=== PATIENT | female | born 1935 | race Caucasian/White ===

== ENCOUNTER → 2017-07-04 | Outpatient (CLI) | payer MEDICARE ==
[~2017-07-04] MED LIST: ADVA250A INH; ADVAI250I INH; ALBU8I INH; ALBUAER3 INH; ALPR-138 PO; ALPR0.25 PO; AMIT10TA6 PO; ASCO1CAP PO; BIOT1CAP2 PO; C 50TAB PO; CALC1TAB87 PO; CALCTAB94 PO; CARV3.12 PO; DUONI NEB; HYDR-2768 PO; HYDR12.56 PO; IPRASOL INH; LISI-515 PO; LORA10 PO; MONT10TA4 PO; MULT1TAB PO; PRED10 PO; PRIN20TA2 PO; PROBCAP4 PO; PROT40TA PO; SPIRCAP INH; UMEC1INH INH; VITA2000 PO; VITA200017 PO
[2017-07-04 12:52] LABS: AUTOMATED NEUTROPHIL # 5.7 TH/MM3 (1.8-7.7); BASOPHIL % 0.5 % (0.0-2.0); EOSINOPHIL # 0.1 TH/MM3 (0-0.4); EOSINOPHIL % 0.9 % (0.0-4.0); HEMATOCRIT 39.3 % (35.0-46.0); HEMOGLOBIN 13.4 GM/DL (11.6-15.3); LYMPH % 29.5 % (9.0-44.0); LYMPHOCYTE # 2.6 TH/MM3 (1.0-4.8); MEAN CELL VOLUME 90.8 FL (80.0-100.0); MEAN CORPUSCULAR HEMOGLOBIN 30.9 PG (27.0-34.0); MEAN CORPUSCULAR HGB CONC 34.1 % (32.0-36.0); MEAN PLATELET VOLUME 8.5 FL (7.0-11.0); MONO % 5.9 % (0.0-8.0); MONOCYTE # 0.5 TH/MM3 (0-0.9); NEUT % 63.2 % (16.0-70.0); PLATELET COUNT 288 TH/MM3 (150-450); RED BLOOD COUNT 4.33 MIL/MM3 (4.00-5.30); RED CELL DISTRIBUTION WIDTH 15.6 % (11.6-17.2)
[2017-07-04 13:02] LABS: BILIRUBIN, URINE NEG (NEG); BLOOD, URINE TRACE (NEG); GLUCOSE,URINE NEG (NEG); KETONE, URINE NEG (NEG); MUCUS URINE FEW /lpf (OCC); NITRITE,URINE NEG (NEG); SQUAMOUS EPITHELIAL CELL URINE 5 /hpf (0-5); URINE COLOR YELLOW (YELLW/STRAW); URINE LEUKOCYTE ESTERASE TRACE (NEG)
[2017-07-04 13:05] LABS: PROTHROMBIN TIME - PATIENT 10.2 SEC (9.8-11.6)
[2017-07-04 13:18] LABS: ALBUMIN 3.7 GM/DL (3.4-5.0); AST (GOT) 19 U/L (15-37); BICARBONATE 26.3 MEQ/L (21.0-32.0); BLOOD UREA NITROGEN 18 MG/DL (7-18); CALCIUM 9.7 MG/DL (8.5-10.1); CHLORIDE 103 MEQ/L (98-107); CREATININE 0.76 MG/DL (0.50-1.00); GLOMERULAR FILTRATION RATE 73 ML/MIN (>89); GLUCOSE,FASTING 112 MG/DL (74-99); SODIUM (NA) 139 MEQ/L (136-145)
[2017-07-04 13:20] LABS: ALT (GPT) 19 U/L (10-53)
[2017-07-04 13:21] LABS: ALKALINE PHOSPHATASE 80 U/L (45-117); TOTAL BILIRUBIN ADULT 0.6 MG/DL (0.2-1.0); TOTAL PROTEIN 7.7 GM/DL (6.4-8.2)
--- NOTE | 2017-07-04 13:23 | RADRPT ---
EXAM DATE/TIME: 07/04/2017 12:33 [place] COMPARISON: No previous studies available for comparison. INDICATIONS : Pre op. Evaluate for pneumonia, pneumothorax, or communicable diseases. MEDICAL HISTORY : Chronic obstructive pulmonary disease. Hypertension SURGICAL HISTORY : None. ENCOUNTER: Initial ACUITY: 1 day PAIN SCORE: 0/10 LOCATION: Bilateral chest FINDINGS: PA and lateral views of the chest demonstrate the lungs to be symmetrically aerated without evidence of mass, infiltrate or effusion. The cardiomediastinal contours are unremarkable. Osseous structure s are intact. CONCLUSION: Normal examination. Flowing thoracic spine osteophyte anteriorly Miah Plunkett MD on July 04, 2017 at 13:21 Board Certified Radiologist. This report was verified electronically.
--- NOTE | 2017-07-05 11:41 | EKG ---
Date Performed: 07/04/2017 Time Performed: 11:35:42 PTAGE: 82 years EKG: ECTOPIC ATRIAL BRADYCARDIA MARKED LEFT AXIS DEVIATION LOW QRS VOLTAGE IN PRECORDIAL LEADS P OSSIBLE ANTERIOR MYOCARDIAL INFARCTION, PROBABLY OLD ABNORMAL ECG PREVIOUS TRACING : 10/13/2013 11.19 When compared to the prior EKG, the patient is now in an ec topic rhythm. DOCTOR: Helen Reece Interpretating Date/Time 07/05/2017 11:39:40
== END ==
LOC: CPRE 11:10
PROVIDERS: ATTEND Colon & Rectal Surgery
DX: Z01.810 Encounter for preprocedural cardiovascular examination (principal); Z01.811 Encounter for preprocedural respiratory examination; Z01.812 Encounter for preprocedural laboratory examination; K94.09 Other complications of colostomy; R94.31 Abnormal electrocardiogram [ECG] [EKG]
CPT/HCPCS: 36415; 71046; 80053; 81001; 85025; 85610; 85730; 93005

== ENCOUNTER 2017-07-11 08:34 | Inpatient (IN) | payer MEDICARE ==
[2017-07-10] MEDS: PCA - TOTAL MG MORPHINE DELIVERED PER SHIFT SCH (22:00)
[~2017-07-11] VITALS: Ht 156.2 cm; Wt 97.0 kg
[~2017-07-11 08:34] MED LIST changes: -ADVAI250I INH; -ALBU8I INH; -ALPR-138 PO; -C 50TAB PO; -CALCTAB94 PO; -DUONI NEB; -HYDR-2768 PO; -LORA10 PO; -PRED10 PO; -PRIN20TA2 PO; -PROBCAP4 PO; -PROT40TA PO; -SPIRCAP INH; -VITA200017 PO
[2017-07-11] MEDS ORDERED: LACTATED RINGER'S 1000 ML INJ 2,000 ML IV ONE (12:00)
[2017-07-11] MEDS ORDERED: hydrALAZINE HCL 20 MG/ML VIAL IV ONE (12:00)
[2017-07-11] MEDS ORDERED: ONDANSETRON HCL 4 MG/2 ML VIAL IV ONE (12:00)
[2017-07-11] MEDS ORDERED: PROPOFOL 200 MG/20 ML AMP IV ONE (12:00)
[2017-07-11] MEDS ORDERED: STERILE WATER FOR INJECTION 20 ML VIAL IV ONE (12:00)
[2017-07-11] MEDS ORDERED: ROCURONIUM INJ 50 MG/5 ML SYRINGE IV PUSH ONE (12:00)
[2017-07-11] MEDS ORDERED: DEXAMETHASONE SOD PHOS 4 MG/ML VIAL IV ONE (12:00)
[2017-07-11] MEDS ORDERED: VECURONIUM BROMIDE 20 MG VIAL IV ONE (12:00)
[2017-07-11] MEDS ORDERED: DEXT 5%-NACL 0.9% 1000 ML INJ 1,000 ML IV SCH (12:15)
[2017-07-11] MEDS ORDERED: LACTATED RINGER'S 1000 ML IV PRN (12:15)
[2017-07-11] MEDS ORDERED: POVIDONE IODINE 5% (ANTISEPSIS KIT) 4 APPLICATIONS EACH NARE PRN (12:15)
[2017-07-11] MEDS ORDERED: METOPROLOL TARTRATE 25 MG TAB PO PRN (12:15)
[2017-07-11] MEDS ORDERED: INSULIN HUMAN REGULAR 1,000 UNITS/10 ML VIAL SQ PRN (12:15)
[2017-07-11] MEDS ORDERED: ceFAZolin 1,000 MG/NS 100 ML IV SCH ×2 (12:15)
[2017-07-11] MEDS ORDERED: CHLORHEXIDINE GLUCONATE 2 % 1 PACK (2 CLOTHS) TOPICAL PRN (12:15)
[2017-07-11] MEDS ORDERED: SODIUM CHLORID 0.9% 500 ML IV PRN (12:15)
[2017-07-11] MEDS ORDERED: ALVIMOPAN 12 MG CAPSULE ONE (12:35)
[2017-07-11] MEDS: METRONIDAZOLE 500 MG/100 ML ISONTONIC SOLN IV SCH ×2 (13:21→13:23)
[2017-07-11] MEDS ORDERED: SUGAMMADEX SODIUM 200 MG/2 ML VIAL IV PUSH ONE (13:34)
--- NOTE | 2017-07-11 14:33 | PD.OP ---
Operative Report Date of Surgery: Jul 11, 2017 Preoperative Diagnosis: Diverticulitis Postoperative Diagnosis: Same Procedure: Cystoscopy with bilateral ureteral catheter placement Anesthesia: ALEJANDRO Surgeon: Homer Curtis Thermograph Operator(s): None Resident Surgeon: None Operation and Findings: 82-year-old female who underwent colectomy in the past with Andrew's pouch. Patient presented to undergo colostomy reversal. Request for made for bilateral ureteral catheter placement by Dr. Be. Patient is brought to the operating room and placed in dorsal lithotomy position. She was prepped and draped in usual sterile fashion received preprocedure antibiotics. Gen. endotracheal tube anesthesia was administered. 20 Latvian cystoscope was inserted in the bladder jackson cystoscopy did not reveal any abnormalities. Left ureteral orifice was identified and a 5 Latvian opening catheter was inserted in the left ureteral orifice without difficulty. This was then repeated on the right side without difficulty. A Merlos was inserted and the catheter was were attached the Merlos. She tolerated the procedure well. Homer Curtis DO Jul 11, 2017 14:33
[2017-07-11] MEDS ORDERED: GLUCAGON 1 MG/ML VIAL ONE (15:43)
[2017-07-11] MEDS ORDERED: *RESP: ALBUTEROL 2.5 MG/3 ML NEB (PRN) PERIprocedural Use ONLY NEB ONE (17:37)
[2017-07-11] MEDS ORDERED: *morphine SULFATE 4 MG/ML PERIprocedure ONLY ONE ×2 (17:41→17:46)
[2017-07-11] MEDS ORDERED: BENZOCAINE 6 MG/MENTHOL 10 MG LOZENGE BUCCAL PRN (17:45)
[2017-07-11] MEDS ORDERED: Post-op Orders (for Pharmacy) XX ONE (17:45)
[2017-07-11] MEDS ORDERED: SODIUM CHLORIDE 0.9% FLUSH 10 ML FLUSH IV FLUSH PRN (17:45)
[2017-07-11] MEDS ORDERED: ALBUTEROL SULFATE 90 MCG/ACT HFA 8 GM INHALER INH PRN (17:45)
[2017-07-11] MEDS ORDERED: ENALAPRILAT 1.25 MG/ML VIAL IV PUSH PRN (17:45)
[2017-07-11] MEDS ORDERED: POTASSIUM CHLOR 20 MEQ PREMIX 100 ML IV PRN (17:45)
[2017-07-11] MEDS ORDERED: ACETAMINOPHEN/HYDROcodone 325 MG/5 MG TAB PO PRN (17:45)
[2017-07-11] MEDS ORDERED: NALOXONE HCL 0.4 MG/ML AMP IV PUSH PRN (17:45)
[2017-07-11] MEDS ORDERED: ZOLPIDEM TARTRATE 5 MG TAB PO PRN (17:45)
[2017-07-11] MEDS ORDERED: POTASSIUM CHLOR 40 MEQ PREMIX 100 ML IV PRN (17:45)
[2017-07-11] MEDS ORDERED: HYDROmorphone HCL PF 2 MG/ML VIAL ONE (17:53)
[2017-07-11] MEDS: METOCLOPRAMIDE HCL 10 MG/2 ML VIAL IVS SCH ×2 (18:00→23:25)
[2017-07-11] MEDS: D5-LR + KCL 20 MEQ INJ 1,000 ML IV SCH ×2 (18:15→23:25)
[2017-07-11] MEDS: MORPHINE SULFATE 30 MG/30 ML PCA IV SCH (18:15)
[2017-07-11 18:52] LABS: AUTOMATED NEUTROPHIL # 16.5 TH/MM3 (1.8-7.7); BASOPHIL # 0.1 TH/MM3 (0-0.2); BASOPHIL % 0.3 % (0.0-2.0); EOSINOPHIL % 0.1 % (0.0-4.0); HEMATOCRIT 41.6 % (35.0-46.0); LYMPH % 16.8 % (9.0-44.0); LYMPHOCYTE # 3.5 TH/MM3 (1.0-4.8); MEAN CELL VOLUME 91.9 FL (80.0-100.0); MEAN CORPUSCULAR HGB CONC 33.7 % (32.0-36.0); MEAN PLATELET VOLUME 9.2 FL (7.0-11.0); MONO % 3.8 % (0.0-8.0); MONOCYTE # 0.8 TH/MM3 (0-0.9); PLATELET COUNT 284 TH/MM3 (150-450); RED BLOOD COUNT 4.53 MIL/MM3 (4.00-5.30); RED CELL DISTRIBUTION WIDTH 15.1 % (11.6-17.2); WHITE BLOOD COUNT 20.9 TH/MM3 (4.0-11.0)
[2017-07-11 19:02] LABS: BICARBONATE 22.2 MEQ/L (21.0-32.0); CALCIUM 8.7 MG/DL (8.5-10.1); CREATININE 1.09 MG/DL (0.50-1.00)
[2017-07-11] MEDS ORDERED: DO NOT ADM ANY ANTICOAGULANT DRUGS PRN (19:30)
[2017-07-11 19:50] VITALS: BP 178/76; PULSE 71; PULSE 80; RESP 18; TEMP 98.2; O2SAT 94
[2017-07-11] MEDS: FUROSEMIDE 20 MG/2 ML VIAL IV PUSH SCH (21:29)
[2017-07-11] MEDS: ceFAZolin 2 GM PREMIX 50 ML IV SCH (21:30)
[2017-07-11] MEDS: MONTELUKAST SODIUM 10 MG TAB PO SCH (21:30)
[2017-07-11] MEDS: CARVEDILOL 3.125 MG TAB PO SCH (21:30)
[2017-07-11] MEDS: LISINOPRIL 20 MG TAB PO SCH (21:30)
[2017-07-11] MEDS: BUDESONIDE-FORMOTEROL 160/4.5 MCG INHALER INH SCH (21:30)
[2017-07-11] MEDS: metroNIDAZOLE 500 MG INJ 100 ML IV SCH (21:31)
[2017-07-11] MEDS: SODIUM CHLORIDE 0.9% FLUSH 10 ML FLUSH IV FLUSH SCH (21:32)
[2017-07-11] MEDS: PCA - TOTAL MG MORPHINE DELIVERED PER SHIFT SCH (22:00)
[2017-07-11 22:05] VITALS: O2SAT 97
[2017-07-11 23:00] VITALS: BP 144/62; PULSE 74; PULSE 78; RESP 16; TEMP 99.2; O2SAT 95
[2017-07-12] VITALS (8 sets, daily range): BP systolic 102–157; BP diastolic 49–66; PULSE 64–73; RESP 16–20; TEMP 97.7–98.8; O2SAT 94–97
[2017-07-12] MEDS: D5-LR + KCL 20 MEQ INJ 1,000 ML IV SCH ×4 (03:36→21:56)
[2017-07-12] MEDS: ceFAZolin 2 GM PREMIX 50 ML IV SCH ×2 (05:53→13:29)
[2017-07-12] MEDS: METOCLOPRAMIDE HCL 10 MG/2 ML VIAL IVS SCH ×4 (05:53→23:52)
[2017-07-12] MEDS: metroNIDAZOLE 500 MG INJ 100 ML IV SCH ×2 (05:53→13:28)
[2017-07-12 08:20] LABS: AUTOMATED NEUTROPHIL # 23.3 TH/MM3 (1.8-7.7); BASOPHIL % 0.1 % (0.0-2.0); HEMATOCRIT 37.1 % (35.0-46.0); HEMOGLOBIN 12.5 GM/DL (11.6-15.3); LYMPH % 4.8 % (9.0-44.0); LYMPHOCYTE # 1.2 TH/MM3 (1.0-4.8); MEAN CORPUSCULAR HGB CONC 33.7 % (32.0-36.0); MEAN PLATELET VOLUME 8.5 FL (7.0-11.0); MONO % 5.5 % (0.0-8.0); MONOCYTE # 1.4 TH/MM3 (0-0.9); NEUT % 89.6 % (16.0-70.0); PLATELET COUNT 275 TH/MM3 (150-450); RED BLOOD COUNT 4.03 MIL/MM3 (4.00-5.30); WHITE BLOOD COUNT 26.1 TH/MM3 (4.0-11.0)
[2017-07-12] MEDS: RESP: ALBUTEROL 2.5 MG/IPRATROPIUM 0.5 MG NEB (SCH) INH ×3 (08:26→19:40)
--- NOTE | 2017-07-12 08:32 | MP ---
cc: Roderick Patricia MDRolando DATE OF OPERATION: 07/11/2017 PREOPERATIVE DIAGNOSIS: Colostomy, heart pouch. POSTOPERATIVE DIAGNOSIS: Colostomy, heart pouch. PROCEDURES PERFORMED: 1. Left colectomy with low anterior resection. 2. Diverting loop ileostomy. 3. Mobilization of splenic flexure. 4. Bilateral ureteral catheter placement by Dr. Homer Curtis. ANESTHESIA: Endotracheal. SURGEON: Roderick Patricia MD ACCOUNT CLERK: Dr. De La Cruz ESTIMATED BLOOD LOSS: 300 milliliters. OPERATING TIME: Two hours and 45 minutes. OPERATIVE FINDINGS: This patient had an emergency colectomy done in [place], [place] about 6 months for ruptured diverticulitis. At that time, they did a colectomy and a colostomy and a Andrew pouch. She then was in the hospital here in March with a 2-3 cm abdominal abscess on the left side, inferior to her colostomy, which cleared with intravenous antibiotics. She has had a previous colonoscopy done a year ago by Dr. Centeno. The patient is 82 years old and wished closure of her colostomy. Preoperatively, I discussed the risks and benefits with her extensively. At surgery, she was found to have multiple abdominal adhesions, with a small previous abscess in the left lower quadrant with several loops of small bowel stuck against the left pelvic sidewall, where this abscess was located. She had a fairly long Andrew pouch, probably 20 cm in length and we originally were going to use the upper rectum for the anastomosis, however, it appeared dusky and somewhat contracted and we were unable to use an adequate stapler for that level. We, therefore, ended up using the lower rectum at about 5 cm above the pelvic floor with a double staple technique. A full left colectomy was done in order to get adequate quality colon to create the anastomosis. The bowel above the colostomy was somewhat contracted and we used descending colon. An omental flap was placed on the left colic gutter into the pelvis. The remainder of the abdomen revealed that the liver, the gallbladder, the small bowel and the rest of the colon was palpably normal. The uterus was surgically absent, as were the tubes and ovaries. OPERATIVE TECHNIQUE: The patient was placed on the table in the supine position after adequate endotracheal anesthesia. The legs were placed in the perineal lithotomy position. Abdomen and perineum were prepped and draped in usual manner. Mucosa of the colostomy was sutured closed with running 3-0 Vicryl suture and then the abdomen was prepped and draped in the usual manner. Transverse infraumbilical skin incision was made, carried down through the subcutaneous tissue and the rectus muscle. The patient was quite obese, complicating the dissection. Upon entering the abdomen, there was diffuse abdominal adhesions of the bowel wall to the anterior abdominal wall and these were taken down both in the midline at her previous incision site and laterally near the colostomy. Once the omental adhesions and the small bowel adhesions were taken down, attention was turned to the Andrew pouch and the left side of the pelvis. Loops of small bowel were stuck down into the pelvis densely and they were dissected free with electrocautery and sharp dissection and a small 1 cm abscess was found with several loops of small bowel walling it off. These loops of small bowel were inspected numerous times during the case to ensure that there was no enterotomy present. They were fibrotic, but they were not occluding or compromising the lumen of the small bowel in those areas and they were left alone and not resected. The inferior mesenteric vessels were isolated, doubly clamped, cut and doubly ligated with 0 Vicryl ligatures. The left and right ureters were identified and protected at all times at their placement of ureteral catheters by Dr. Homer Curtis. The retrorectal space was entered and the dissection was taken down to the pelvic floor and laterally the lateral stocks were also divided with electrocautery. At first, we tried to stay above the cul-de-sac and use the upper rectum for the anastomosis, but the upper rectum appeared dusky and we were unable to get the 29 Ethicon EEA stapler in the bowel. We, therefore, dissected lower, clearing the mesorectum, in the lower most portion of the mesorectum. The rectum was then divided with a contour stapler at about 5 cm above the pelvic floor. The colostomy was taken down from its cutaneous position with vertical elliptical incision and taken down through the subcutaneous tissue and then was removed through the rectus muscle. The descending colon was mobilized along its perineal reflection and the splenic flexure was likewise mobilized and the omentum was mobilized from the transverse colon entering the lesser sac. Once this was done, the left colic vessels were doubly clamped, cut and doubly ligated with 0 Vicryl ligature and the dissection was taken up to the middle colic and the marginal vessels without compromising these vessels. Once this was done, the pursestring stapling device was placed in the bowel and the bowel was divided in descending colon and the anvil of the Ethicon 29 stapler was placed to the proximal bowel and the pursestring was tied. Dr. De La Cruz went below and placed the EEA instrument transanally. As I said, it was not able to be brought up to the upper rectal region and, therefore, the dissection was taken lower as described above and that rectum was then divided and closed with a contour stapler. When Dr. De La Cruz placed the EEA instrument transanally, the trocar was brought up through the right corner of the staple line and then the instrument was connected, closed and fired, creating the anastomosis. There was no tension on the anastomosis and the blood supply was excellent. The pelvis was irrigated with 3 liters of saline solution, aspirated dry. Hemostasis was maintained throughout with electrocautery and ligature. The abdominal cavity was irrigated likewise with 2 liters of saline solution, aspirated dry. The small bowel was run several times and the area of the fibrotic areas of the small bowel that walled off the small abscess were inspected numerous times and found to be patent, without any enterotomy. An ileostomy was made after creating a stoma site in the right upper quadrant through the rectus muscle and an opening was made in the mesentery of the ileum and the ileum was stapled closed on the distal side with a TX 30 stapler. The ileum was brought out through the stoma site and then a previous colostomy site was closed in 2 layers using a #1 PDS for the posterior rectus sheath and a #1 PDS for the anterior rectus sheath. Next, there was a ventral hernia above our transverse incision in her previous midline incision for about 10 cm and this ventral hernia was repaired inside using a single stranded #1 PDS suture. Next, the bowels were placed in the abdominal cavity in an product ambassador manner. The omentum was placed down the left colic gutter and into the pelvis as an omental flap and a #10 flat Charles drain was placed in the pelvis, posterior to the rectum, brought out through a separate stab wound in the right lower quadrant. We then closed the abdominal cavity in layers using a double stranded #1 PDS for the posterior rectus sheath. The muscle layer was irrigated with a liter of saline solution, aspirated dry and then the anterior rectus sheath was closed with a double strand and 1 PDS as well. Subcutaneous tissue was irrigated thoroughly with saline solution, aspirated dry and the skin was closed with skin kai. The previous colostomy site was closed with skin kai. We then matured the ileostomy using interrupted 3-0 Vicryl sutures. A 57 millimeter appliance was placed. Operating time was 2 hours and 45 minutes. Estimated blood loss was 300 milliliters. The patient tolerated the procedure well and left the operating room in good condition. MD ASHLEIGH Ferreira/VIVEK , 05:36 PM , 07:18 PM
[2017-07-12 08:39] LABS: BICARBONATE 22.6 MEQ/L (21.0-32.0); CALCIUM 8.2 MG/DL (8.5-10.1); CREATININE 1.18 MG/DL (0.50-1.00)
[2017-07-12] MEDS: BUDESONIDE-FORMOTEROL 160/4.5 MCG INHALER INH SCH ×2 (08:58→21:56)
[2017-07-12] MEDS: PANTOPRAZOLE SODIUM 40 MG VIAL IVP SCH (08:59)
[2017-07-12] MEDS: FUROSEMIDE 20 MG/2 ML VIAL IV PUSH SCH ×2 (08:59→21:57)
[2017-07-12] MEDS: HYDROCHLOROTHIAZIDE 12.5 MG CAP PO SCH (09:00)
[2017-07-12] MEDS ORDERED: UMECLIDINIUM BROMIDE 62.5 MCG INH SCH (09:00)
[2017-07-12] MEDS: SODIUM CHLORIDE 0.9% FLUSH 10 ML FLUSH IV FLUSH SCH ×2 (09:01→21:56)
[2017-07-12] MEDS: CARVEDILOL 3.125 MG TAB PO SCH ×2 (09:01→21:57)
[2017-07-12] MEDS: ALVIMOPAN 12 MG CAPSULE PO SCH ×2 (09:01→21:57)
[2017-07-12] MEDS: ONDANSETRON HCL 4 MG/2 ML VIAL IV PUSH PRN (11:05)
[2017-07-12] MEDS: PCA - TOTAL MG MORPHINE DELIVERED PER SHIFT SCH ×2 (14:00→21:58)
--- NOTE | 2017-07-12 14:43 | PD.WCN.NOT ---
Wound Consult Description: Consult for NEW OSTOMY TEACHING of RUQ ileostomy (temporary) per Dr Patricia Communicated with: Patient RN Recommendation: Assess stoma and output Q4H for the first 24 hours then Q8H/PRN for ileostomy. Output will begin usually 12-24 ours postop. Empty pouch of effluent when 1/3-1/2 full Change pouching system every 3-5 days and PRN for suspected leaks Additional Information: Patient seen on for ostomy assessment and teaching. Ostomy Type: Ileostomy Surgeon: Roderick Patricia MD Date of Surgery: Jul 11, 2017 Complete: Education materials Educated patient on: Output of stoma Lumen Measurement of ileostomy Color of stoma Follow up on Saturday for further teaching Additional information Patient seen on for ostomy assessment and teaching. Stoma is located on the right quadrant of the abdomen measuring ~1", round, pink, moist, edematous, moderately protruding, lumen noted @6 o'clock not functioning at this time. Scant serosang liquid noted in pouch and thick sanguinous exudate noted around stoma on wafer. Discussion regarding the differences between a colostomy and an ileostomy. Topics included stoma appearance, foods, medications, showering, supplies, output, wafer wear time, emptying pouch and how often to change the system. Trudy Menard [facility] Jul 12, 2017 14:43
--- NOTE | 2017-07-12 16:32 | HHI.PR ---
Subjective Remarks No N or V. No BMs Objective Vital Signs Date Time Temp Pulse Resp B/P (MAP) Pulse Ox O2 Delivery O2 Flow Rate FiO2 07/12/17 15:18 97.7 71 18 116/56 (76) 96 07/12/17 11:00 97.8 73 18 157/66 (96) 95 07/12/17 08:28 95 Nasal Cannula 2.00 07/12/17 08:00 98.8 73 18 138/58 (84) 95 07/12/17 08:00 95 Nasal Cannula 2.00 07/12/17 03:00 98.1 72 16 150/52 (84) 95 07/12/17 03:00 73 07/11/17 23:00 74 07/11/17 23:00 99.2 78 16 144/62 (89) 95 07/11/17 22:05 97 Nasal Cannula 2.00 07/11/17 22:00 16 07/11/17 22:00 16 07/11/17 20:35 18 07/11/17 19:50 80 07/11/17 19:50 98.2 71 18 178/76 (110) 94 07/11/17 19:00 79 15 169/72 (104) 92 07/11/17 18:45 80 14 178/76 (110) 92 07/11/17 18:30 79 15 174/58 (96) 94 07/11/17 18:15 75 15 182/76 (111) 94 07/11/17 18:15 12 07/11/17 18:00 73 20 176/77 (110) 96 07/11/17 17:45 75 16 176/77 (110) 97 Nasal Cannula 3 07/11/17 17:30 97.5 74 36 181/81 (114) 97 T-Piece 10 I/O 07/11/17 07/11/17 07/11/17 07/12/17 07/12/17 07/12/17 07:00 15:00 23:00 07:00 15:00 23:00 Intake Total 3100 ml 3622 ml Output Total 595 ml 1285 ml Balance 2505 ml 2337 ml Intake Oral 380 ml IV Total 100 ml 3242 ml Other 3000 ml Output Urine Total 250 ml 1200 ml Drainage Total 45 ml 85 ml Estimated Blood Loss 300 ml # Bowel Movements 1 Result Diagram: 07/12/17 0718 0705 Objective Remarks VS-S Abd: soft,stoma pink I&Os-OK Labs-OK Assessment and Plan Assessment and Plan Stable POD#1 Decrease IVs,ambulate,D/C [employer]ICER tomorrow. Roderick Patricia MD Jul 12, 2017 16:32
[2017-07-12] MEDS: LISINOPRIL 20 MG TAB PO SCH (21:57)
[2017-07-12] MEDS: MONTELUKAST SODIUM 10 MG TAB PO SCH (21:57)
[2017-07-13] VITALS (8 sets, daily range): BP systolic 117–143; BP diastolic 56–84; PULSE 72–94; RESP 16–20; TEMP 98–100; O2SAT 94–97
[2017-07-13 04:53] LABS: AUTOMATED NEUTROPHIL # 20.9 TH/MM3 (1.8-7.7); BASOPHIL % 0.1 % (0.0-2.0); EOSINOPHIL % 0.1 % (0.0-4.0); HEMATOCRIT 32.1 % (35.0-46.0); HEMOGLOBIN 10.8 GM/DL (11.6-15.3); LYMPH % 6.4 % (9.0-44.0); LYMPHOCYTE # 1.5 TH/MM3 (1.0-4.8); MEAN CELL VOLUME 91.5 FL (80.0-100.0); MEAN CORPUSCULAR HEMOGLOBIN 30.8 PG (27.0-34.0); MEAN CORPUSCULAR HGB CONC 33.7 % (32.0-36.0); MEAN PLATELET VOLUME 8.5 FL (7.0-11.0); MONO % 4.9 % (0.0-8.0); MONOCYTE # 1.2 TH/MM3 (0-0.9); NEUT % 88.5 % (16.0-70.0); PLATELET COUNT 258 TH/MM3 (150-450); RED BLOOD COUNT 3.51 MIL/MM3 (4.00-5.30); RED CELL DISTRIBUTION WIDTH 14.9 % (11.6-17.2); WHITE BLOOD COUNT 23.6 TH/MM3 (4.0-11.0)
[2017-07-13 05:34] LABS: BICARBONATE 26.9 MEQ/L (21.0-32.0); CALCIUM 8.2 MG/DL (8.5-10.1); CREATININE 1.09 MG/DL (0.50-1.00)
[2017-07-13] MEDS: PCA - TOTAL MG MORPHINE DELIVERED PER SHIFT SCH ×3 (06:00→22:00)
[2017-07-13] MEDS: METOCLOPRAMIDE HCL 10 MG/2 ML VIAL IVS SCH ×4 (06:07→23:38)
[2017-07-13] MEDS: RESP: ALBUTEROL 2.5 MG/IPRATROPIUM 0.5 MG NEB (SCH) INH ×3 (07:28→21:00)
[2017-07-13] MEDS: PANTOPRAZOLE SODIUM 40 MG VIAL IVP SCH (09:00)
[2017-07-13] MEDS: BUDESONIDE-FORMOTEROL 160/4.5 MCG INHALER INH SCH ×2 (09:00→20:54)
[2017-07-13] MEDS: SODIUM CHLORIDE 0.9% FLUSH 10 ML FLUSH IV FLUSH SCH ×2 (09:00→20:53)
[2017-07-13] MEDS: ALVIMOPAN 12 MG CAPSULE PO SCH ×2 (09:26→20:53)
[2017-07-13] MEDS: CARVEDILOL 3.125 MG TAB PO SCH ×2 (09:26→20:53)
[2017-07-13] MEDS: HYDROCHLOROTHIAZIDE 12.5 MG CAP PO SCH (09:26)
[2017-07-13] MEDS: FUROSEMIDE 20 MG/2 ML VIAL IV PUSH SCH ×2 (09:27→20:53)
--- NOTE | 2017-07-13 10:07 | HHI.PR ---
Subjective Remarks C/R Surg POD # 2 afebrile, VSS UO good no stoma output Objective - Vital Signs Date Time Temp Pulse Resp B/P (MAP) Pulse Ox O2 Delivery O2 Flow Rate FiO2 07/13/17 07:58 94 Nasal Cannula 2.00 07/13/17 07:58 98.4 94 20 136/61 (86) Result Diagram: 07/13/1734407/13/17344 Objective Remarks PE alert, VSS destiney little PO Abd - lg, wound dry, stoma clean, FORD min A/P Assessment and Plan Imp: adv diet slowly OOB resp Rx decr IVF Nba Khanna MD Jul 13, 2017 10:07
[2017-07-13] MEDS: ONDANSETRON HCL 4 MG/2 ML VIAL IV PUSH PRN ×2 (10:47→18:10)
[2017-07-13] MEDS: D5-LR + KCL 20 MEQ INJ 1,000 ML IV SCH (20:50)
[2017-07-13] MEDS: LISINOPRIL 20 MG TAB PO SCH (20:53)
[2017-07-13] MEDS: MONTELUKAST SODIUM 10 MG TAB PO SCH (20:53)
[2017-07-13] MEDS: MORPHINE SULFATE 30 MG/30 ML PCA IV SCH (23:34)
[2017-07-14] VITALS (8 sets, daily range): BP systolic 119–139; BP diastolic 53–75; PULSE 60–80; RESP 16–20; TEMP 97.8–98.6; O2SAT 95–98
[2017-07-14] MEDS: PCA - TOTAL MG MORPHINE DELIVERED PER SHIFT SCH (06:00)
[2017-07-14] MEDS: METOCLOPRAMIDE HCL 10 MG/2 ML VIAL IVS SCH (06:28)
[2017-07-14] MEDS: RESP: ALBUTEROL 2.5 MG/IPRATROPIUM 0.5 MG NEB (SCH) INH ×3 (08:39→19:30)
[2017-07-14] MEDS: SODIUM CHLORIDE 0.9% FLUSH 10 ML FLUSH IV FLUSH SCH ×2 (09:00→22:24)
[2017-07-14] MEDS: BUDESONIDE-FORMOTEROL 160/4.5 MCG INHALER INH SCH ×2 (09:00→22:24)
[2017-07-14] MEDS: FUROSEMIDE 20 MG/2 ML VIAL IV PUSH SCH (09:13)
[2017-07-14] MEDS: HYDROCHLOROTHIAZIDE 12.5 MG CAP PO SCH (09:14)
[2017-07-14] MEDS: CARVEDILOL 3.125 MG TAB PO SCH ×2 (09:14→22:24)
[2017-07-14] MEDS: PANTOPRAZOLE SODIUM 40 MG VIAL IVP SCH (09:14)
[2017-07-14] MEDS: ALVIMOPAN 12 MG CAPSULE PO SCH ×2 (09:14→22:24)
[2017-07-14] MEDS: ONDANSETRON HCL 4 MG/2 ML VIAL IV PUSH PRN (09:14)
--- NOTE | 2017-07-14 11:22 | HHI.PR ---
Subjective Remarks C/R Surg POD # 3 afebrile, VSS UO good no stoma output little PO Objective - Vital Signs Date Time Temp Pulse Resp B/P (MAP) Pulse Ox O2 Delivery O2 Flow Rate FiO2 07/14/17 11:00 98.2 80 20 124/60 (81) 96 07/14/17 08:39 Nasal Cannula 2.00 Result Diagram: 07/13/1734407/13/17 0345 Objective Remarks PE alert, VSS destiney little PO Abd - lg, wound dry, stoma clean, FORD min A/P Assessment and Plan Imp: adv diet slowly OOB resp Rx decr IVF Tx to floor Nba Khanna MD Jul 14, 2017 11:22
[2017-07-14] MEDS: D5-LR + KCL 20 MEQ INJ 1,000 ML IV SCH (11:34)
[2017-07-14] MEDS: ACETAMINOPHEN/HYDROcodone 325 MG/5 MG TAB PO PRN ×2 (11:35→17:49)
[2017-07-14] MEDS: MONTELUKAST SODIUM 10 MG TAB PO SCH (22:23)
[2017-07-14] MEDS: LISINOPRIL 20 MG TAB PO SCH (22:23)
[2017-07-15] VITALS (7 sets, daily range): BP systolic 112–169; BP diastolic 55–74; PULSE 62–69; RESP 14–19; TEMP 97.7–99; O2SAT 90–94
[2017-07-15] MEDS: D5-LR + KCL 20 MEQ INJ 1,000 ML IV SCH ×3 (01:25→22:20)
[2017-07-15] MEDS: ACETAMINOPHEN/HYDROcodone 325 MG/5 MG TAB PO PRN ×3 (01:46→18:10)
[2017-07-15] MEDS: RESP: ALBUTEROL 2.5 MG/IPRATROPIUM 0.5 MG NEB (SCH) INH ×2 (08:51→12:33)
--- NOTE | 2017-07-15 08:54 | HHI.PR ---
Subjective Remarks No N or V. Stooling large liquid stools. Objective Vital Signs Date Time Temp Pulse Resp B/P (MAP) Pulse Ox O2 Delivery O2 Flow Rate FiO2 07/15/17 07:20 99.0 64 19 112/56 (74) 94 07/15/17 07:20 94 Room Air 07/15/17 04:45 98.6 69 18 124/60 (81) 90 07/14/17 23:00 96 Room Air 07/14/17 23:00 98.6 62 18 124/75 (91) 98 07/14/17 19:32 98 Nasal Cannula 2.00 07/14/17 19:00 98.6 60 20 121/58 (79) 97 07/14/17 15:00 98.1 60 20 120/53 (75) 98 07/14/17 11:00 98.2 80 20 124/60 (81) 96 I/O 07/14/17 07/14/17 07/14/17 07/15/17 07/15/17 07/15/17 07:00 15:00 23:00 07:00 15:00 23:00 Intake Total 2175 ml 720 ml 420 ml Output Total 1730 ml 850 ml 900 ml 250 ml Balance 445 ml -130 ml -480 ml -250 ml Intake Oral 320 ml 720 ml 420 ml IV Total 1855 ml Output Urine Total 1700 ml 800 ml 550 ml 200 ml Stool Total 50 ml 350 ml 50 ml Drainage Total 30 ml # Bowel Movements 2 2 Result Diagram: 07/13/17 0345 07/13/17 0345 Objective Remarks VS-S- Temp 99 this AM Abd: soft,stoma pink,stooling Assessment and Plan Assessment and Plan Stable POD#4 Watch temps and wound, restart IV for Ileostomy outputs. Stop Roderick Chambers MD Jul 15, 2017 08:54
[2017-07-15] MEDS: HYDROCHLOROTHIAZIDE 12.5 MG CAP PO SCH (09:26)
[2017-07-15] MEDS: PANTOPRAZOLE SODIUM 40 MG VIAL IVP SCH (09:26)
[2017-07-15] MEDS: CARVEDILOL 3.125 MG TAB PO SCH ×2 (09:27→23:50)
[2017-07-15] MEDS: SODIUM CHLORIDE 0.9% FLUSH 10 ML FLUSH IV FLUSH SCH ×2 (09:27→22:20)
[2017-07-15] MEDS: ONDANSETRON HCL 4 MG/2 ML VIAL IV PUSH PRN ×2 (09:28→18:09)
[2017-07-15] MEDS: BUDESONIDE-FORMOTEROL 160/4.5 MCG INHALER INH SCH ×2 (09:36→23:51)
[2017-07-15 11:24] LABS: AUTOMATED NEUTROPHIL # 13.3 TH/MM3 (1.8-7.7); BASOPHIL # 0.1 TH/MM3 (0-0.2); BASOPHIL % 0.5 % (0.0-2.0); EOSINOPHIL # 0.2 TH/MM3 (0-0.4); EOSINOPHIL % 1.4 % (0.0-4.0); HEMATOCRIT 29.9 % (35.0-46.0); HEMOGLOBIN 10.1 GM/DL (11.6-15.3); LYMPH % 9.9 % (9.0-44.0); LYMPHOCYTE # 1.6 TH/MM3 (1.0-4.8); MEAN CELL VOLUME 92.3 FL (80.0-100.0); MEAN CORPUSCULAR HEMOGLOBIN 31.3 PG (27.0-34.0); MEAN CORPUSCULAR HGB CONC 33.9 % (32.0-36.0); MEAN PLATELET VOLUME 7.7 FL (7.0-11.0); MONO % 4.4 % (0.0-8.0); MONOCYTE # 0.7 TH/MM3 (0-0.9); NEUT % 83.8 % (16.0-70.0); PLATELET COUNT 305 TH/MM3 (150-450); RED BLOOD COUNT 3.24 MIL/MM3 (4.00-5.30); RED CELL DISTRIBUTION WIDTH 15.2 % (11.6-17.2); WHITE BLOOD COUNT 15.9 TH/MM3 (4.0-11.0)
--- NOTE | 2017-07-15 16:18 | PD.WCN.NOT ---
Wound Consult Description: Consult for NEW OSTOMY TEACHING of RUQ ileostomy (temporary) per Dr Patricia Communicated with: Patient Recommendation: Assess stoma and output Q8H/PRN for ileostomy. Empty pouch of effluent when 1/3-1/2 full Change pouching system every 3-5 days and PRN for suspected leaks Additional Information: Patient seen 2x today for ostomy assessment, teaching, and ostomy pouching system change this afternoon. Ostomy Type: Ileostomy Surgeon: Roderick Patricia MD Date of Surgery: Jul 11, 2017 Complete: Starter kit (sent out today with patient consent), Education materials, Rx (left on chart for same type of pouching system that she was using prior with colostomy, now ileostomy.), Other (Pouching system changed today using cut to fit one piece appliance.) Educated patient on: One piece pouching system can be used by [facility] until new supplies are obtained that are specific for ileostomy vs the colostomy appliance she is used to. Additional information Patient seen on for ostomy assessment, teaching, and appliance change using cut to fit one piece pouching system for 1 1/4" ileostomy. Ostomy is red, round, moist, moderately protruding, functioning with green/brown liquid effluent noted in pouch that was emptied by radio script writer during appliance change today. Patient had questions regarding her ostomy supplies at home for her previous colostomy that were answered. Patient can continue to use the cut to fit ostomy supplies that she has at home and were ordered for her here until she can obtain supplies from her supplier [employer] with the new script left on the chart. Pouching system was removed today using adhesive remover wipes. Peristomal skin was cleansed using warm water and a wash cloth. Skin prep was then applied to her dry skin and allowed to dry thoroughly before measuring her stoma and cutting wafer to fit around stoma giving 1/8" room for sutures. New one piece cut to fit appliance was placed and the clip was placed on the bottom of the pouch to close. Trudy Menard [facility] Jul 15, 2017 16:18
[2017-07-15] MEDS: METOCLOPRAMIDE HCL 10 MG/2 ML VIAL IVS PRN (22:22)
[2017-07-15] MEDS: LISINOPRIL 20 MG TAB PO SCH (23:50)
[2017-07-15] MEDS: MONTELUKAST SODIUM 10 MG TAB PO SCH (23:50)
[2017-07-16] VITALS: BP 130/59; PULSE 64; RESP 14; TEMP 98.7; O2SAT 92
[2017-07-16] MEDS: ONDANSETRON HCL 4 MG/2 ML VIAL IV PUSH PRN ×4 (03:22→23:27)
[2017-07-16] MEDS: METOCLOPRAMIDE HCL 10 MG/2 ML VIAL IVS PRN ×2 (05:30→11:53)
[2017-07-16 07:51] LABS: CALCIUM 9.2 MG/DL (8.5-10.1); CREATININE 0.72 MG/DL (0.50-1.00)
[2017-07-16 08:00] VITALS: BP 166/67; PULSE 68; RESP 18; TEMP 96.5; O2SAT 93
[2017-07-16] MEDS: SODIUM CHLORIDE 0.9% FLUSH 10 ML FLUSH IV FLUSH SCH ×2 (08:13→19:20)
[2017-07-16] MEDS: BUDESONIDE-FORMOTEROL 160/4.5 MCG INHALER INH SCH ×2 (08:13→21:23)
[2017-07-16] MEDS: PANTOPRAZOLE SODIUM 40 MG VIAL IVP SCH (08:14)
[2017-07-16] MEDS: CARVEDILOL 3.125 MG TAB PO SCH ×2 (08:15→21:22)
[2017-07-16] MEDS: HYDROCHLOROTHIAZIDE 12.5 MG CAP PO SCH (08:16)
[2017-07-16] MEDS: D5-LR + KCL 20 MEQ INJ 1,000 ML IV SCH ×2 (09:47→23:27)
--- NOTE | 2017-07-16 11:28 | PD.WCN.NOT ---
Wound Consult Description: Consult for NEW OSTOMY TEACHING of RUQ ileostomy (temporary) per Dr Patricia Communicated with: Patient Recommendation: Assess stoma and output Q8H/PRN for ileostomy. Empty pouch of effluent when 1/3-1/2 full Change pouching system every 3-5 days and PRN for suspected leaks Additional Information: Patient seen on [address] [place] [address] for ostomy assessment and teaching. Ostomy Type: Ileostomy Surgeon: Roderick Patricia MD Date of Surgery: Jul 11, 2017 Complete: Starter kit (sent out yesterday with patient consent), Education materials (left at bedside for reinforcement of teaching), Rx (left on chart for same type of pouching system that she was using prior with colostomy, now ileostomy.), Other (Pouching system changed yesterday using cut to fit one piece appliance.) Educated patient on: Script left on chart. Patient states that she just emptied the pouch prior to writers arrival. Patient whispers that she is feeling "like crap" and has the hiccups during our encounter. Additional information Patient seen on [address] [place] [address] for ostomy assessment, teaching, and reinforcement with demonstration of appliances available. Patient is sitting up in chair and states that she just returned from the bathroom and emptied her ileostomy pouch. Patient asked if her script was on the chart so she could obtain new supplies for her ileostomy. It was explained that production underwriter placed in chart yesterday and will be given to her upon discharge. Patient states that she is on two different antinausea medications and still feeling nauseous and currently is with hiccups during our discussion. SAL Yoon entered room during our discussion and had questions for the patient. Patient will be followed daily until discharge home with home health care once she is stable for dc. Trudy Menard [facility] Jul 16, 2017 11:28
[2017-07-16 12:00] VITALS: BP 150/65; PULSE 61; RESP 18; TEMP 97.3; O2SAT 94
--- NOTE | 2017-07-16 12:30 | HHI.PR ---
Subjective Remarks C/O nausea and vomiting since yesterday, no emesis recorded. Stooling large liquid stools. Objective Vital Signs Date Time Temp Pulse Resp B/P (MAP) Pulse Ox O2 Delivery O2 Flow Rate FiO2 07/16/17 08:00 96.5 68 18 166/67 (100) 93 07/16/17 07:00 Room Air 07/16/17 00:00 98.7 64 14 130/59 (82) 92 07/15/17 20:00 99.0 62 14 151/66 (94) 91 07/15/17 20:00 Room Air 07/15/17 18:00 97.7 65 18 169/74 (105) 92 07/15/17 15:00 66 18 116/55 (75) 92 I/O 07/15/17 07/15/17 07/15/17 07/16/17 07/16/17 07/16/17 07:00 15:00 23:00 07:00 15:00 23:00 Intake Total 420 ml 1260 ml 240 ml Output Total 900 ml 250 ml 250 ml 400 ml Balance -480 ml -250 ml 1010 ml -160 ml Intake Oral 420 ml 360 ml 240 ml IV Total 900 ml Output Urine Total 550 ml 200 ml Stool Total 350 ml 50 ml 250 ml 400 ml # Voids 3 3 # Bowel Movements 1 Result Diagram: 07/15/17 1047 07/16/17 0616 Objective Remarks VS-S- Abd: soft,stoma pink,stooling. No redness except staple sites I&Os-OK Labs-OK Assessment and Plan Assessment and Plan Stable POD#5 Temps normal. No wound redness. N and V and drinking large liquids. Ambulate more. Stop Reglan for nausea. NPO for now till nausea and vomiting improve.Cont Roderick Almonte MD Jul 16, 2017 12:30
[2017-07-16 16:00] VITALS: BP 151/67; PULSE 62; RESP 18; TEMP 97.8; O2SAT 94
[2017-07-16] MEDS: ACETAMINOPHEN/HYDROcodone 325 MG/5 MG TAB PO PRN ×2 (17:28→23:26)
[2017-07-16 20:00] VITALS: BP 135/60; PULSE 68; RESP 18; TEMP 97.4; O2SAT 94
[2017-07-16] MEDS: MONTELUKAST SODIUM 10 MG TAB PO SCH (21:23)
[2017-07-16] MEDS: LISINOPRIL 20 MG TAB PO SCH (21:23)
[2017-07-17] VITALS: BP 142/63; PULSE 72; RESP 18; TEMP 98; O2SAT 95
[2017-07-17 08:00] VITALS: BP 162/68; PULSE 62; RESP 14; TEMP 98.6; O2SAT 95
--- NOTE | 2017-07-17 08:26 | HHI.FF ---
Face to Face Verification Diagnosis: (1) Colostomy closure (2) S/P partial colectomy (3) Ileostomy in place Home Health Nursing Order: Medical education Diabetic education Nursing assessment with vital signs Instructions: Temporary ileostomy care and teaching I have seen patient Zane Mcintyre on 07/17/17. My clinical findings support the need for the requested home health care services because: Ltd mobility - disease progression Deconditioned w/ increased weakness Need for psychosocial assistance High risk of falls I certify that my clinical findings support that this patient is homebound because: Post-op weakness Unsteady gait/balance Unsafe to leave home unassisted Need for psychosocial assistance Roderick Patricia MD Jul 17, 2017 08:26
--- NOTE | 2017-07-17 08:55 | HHI.PR ---
Subjective Remarks Little nausea, no emesis recorded. Stooling large liquid stools. Objective Vital Signs Date Time Temp Pulse Resp B/P (MAP) Pulse Ox O2 Delivery O2 Flow Rate FiO2 07/17/17 00:00 98.0 72 18 142/63 (89) 95 07/16/17 20:00 97.4 68 18 135/60 (85) 94 07/16/17 19:00 Room Air 07/16/17 16:00 97.8 62 18 151/67 (95) 94 07/16/17 12:00 97.3 61 18 150/65 (93) 94 I/O 07/16/17 07/16/17 07/16/17 07/17/17 07/17/17 07/17/17 07:00 15:00 23:00 07:00 15:00 23:00 Intake Total 240 ml 360 ml 900 ml Output Total 400 ml 150 ml 740 ml 300 ml Balance -160 ml -150 ml -380 ml 600 ml Intake Oral 240 ml 360 ml IV Total 900 ml Stool Total 400 ml 150 ml 740 ml 300 ml # Voids 3 1 4 2 # Bowel Movements 1 Result Diagram: 07/15/17 1047 07/16/17 0616 Objective Remarks VS-S- Abd: soft,stoma pink,stooling. No redness except staple sites Labs-OK Assessment and Plan Assessment and Plan Stable POD#6 Temps normal. No wound redness. Ambulate more. Regular diet and D/C after if tolerates Roderick Patricia MD Jul 17, 2017 08:54
[2017-07-17] MEDS: PANTOPRAZOLE SODIUM 40 MG VIAL IVP SCH (09:17)
[2017-07-17] MEDS: CARVEDILOL 3.125 MG TAB PO SCH (09:17)
[2017-07-17] MEDS: SODIUM CHLORIDE 0.9% FLUSH 10 ML FLUSH IV FLUSH SCH (09:18)
[2017-07-17] MEDS: HYDROCHLOROTHIAZIDE 12.5 MG CAP PO SCH (09:18)
[2017-07-17] MEDS: ACETAMINOPHEN/HYDROcodone 325 MG/5 MG TAB PO PRN (09:34)
[2017-07-17] MEDS: ONDANSETRON HCL 4 MG/2 ML VIAL IV PUSH PRN (09:34)
--- NOTE | 2017-07-17 11:44 | PD.WCN.NOT ---
Wound Consult Description: Consult for NEW OSTOMY TEACHING of RUQ ileostomy (temporary) per Dr Patricia Communicated with: Patient Recommendation: Assess stoma and output Q8H/PRN for ileostomy. Empty pouch of effluent when 1/3-1/2 full Change pouching system every 3-5 days and PRN for suspected leaks Additional Information: Patient seen on [address] [place] [address] for ostomy assessment and teaching. Ostomy Type: Ileostomy Surgeon: Roderick Patricia MD Date of Surgery: Jul 11, 2017 Complete: Starter kit (sent out yesterday with patient consent), Education materials (left at bedside for reinforcement of teaching), Rx (left on chart for same type of pouching system that she was using prior with colostomy, now ileostomy.), Other (Pouching system changed yesterday using cut to fit one piece appliance.) Educated patient on: Getting up to chair for all meals. Ambulating. Staying hydrated. Emptying pouch when 1/3-1/2 full of effluent. Changing pouching system every 3-5 days and PRN before leaks occur. When to seek medical attention. Using cut to fit appliance with 1 1/4" stoma size with sutures Additional information Patient seen on [address] [place] [address] for ostomy assessment and teaching of new ileostomy. Patient was lying in bed and appeared to be sleeping upon entering patient room. Patient woke easily when her name was called. Patient stated @1000 that she was still waiting on her breakfast to come that she had ordered @ 0900 this morning. Patient laughed and stated that she will probably be leaving before her breakfast even comes. Patient refused to get up to the chair for breakfast, saying the chair is uncomfortable, and she has been hooked up to the iv fluid making it difficult to do anything. It was explained to her that she is leaving today and should be getting up into a chair, there are 3 of them in her room, to eat all of her meals, she should be ambulating at least 3-4 times a day, and if she requires assistance she can use her call ross. Patient states that it takes too long for anyone to get there and she just wants to go home where she doesn't have to wait on anyone anymore. Patient states that she will have 2 people at her house around the clock to help her when she needs it. When asked if she would be able to get up out of bed independently, she states she thinks so, if not she will have help. Home health care is supposed to come by as well. Stoma is located on her right side. Ileostomy is red, round, moist, moderately protruding, edematous, functioning with green liquid effluent coming from lumen noted @6 o'clock. Pouch was emptied of air by freelance writer and clip placed back on to close. Trudy Menard [facility] Jul 17, 2017 11:44
[2017-07-17 12:00] VITALS: BP 127/58; PULSE 59; RESP 16; TEMP 97.2; O2SAT 95
== END 2017-07-17 12:52 | disposition home health service (06) | DRG 329 ==
LOC: HSDI 11:30 → HCVI 19:30 → HCPC 07-12 14:20 → N07B 07-15 17:10
PROVIDERS: ADMIT Colon & Rectal Surgery; ATTEND Colon & Rectal Surgery
PROC: 0D1B0Z4 Bypass Ileum to Cutaneous, Open Approach (ICD-10-PCS; 2017-07-11)
PROC: 0WQF0ZZ Repair Abdominal Wall, Open Approach (ICD-10-PCS; 2017-07-11)
PROC: 0W9G0ZX Drainage of Peritoneal Cavity, Open Approach, Diagnostic (ICD-10-PCS; 2017-07-11)
PROC: 0DBP0ZZ Excision of Rectum, Open Approach (ICD-10-PCS; 2017-07-11)
PROC: 0T788DZ Dilation of Bilateral Ureters with Intraluminal Device, Via Natural or Artificial Opening Endoscopic (ICD-10-PCS; 2017-07-11)
PROC: 0DBE0ZZ Excision of Large Intestine, Open Approach (ICD-10-PCS; principal; 2017-07-11 13:43)
PROC: 0DTG0ZZ Resection of Left Large Intestine, Open Approach (ICD-10-PCS; 2017-07-11 13:43)
DX: Z43.3 Encounter for attention to colostomy (principal); K65.1 Peritoneal abscess; K43.2 Incisional hernia without obstruction or gangrene; K66.0 Peritoneal adhesions (postprocedural) (postinfection); N73.8 Other specified female pelvic inflammatory diseases
CPT/HCPCS: 76937; 80048; 85025; 86850; 86900; 86901; 88304; 88307; 88309; 94150; 94640; 94664; C9113; J0360; J0690; J1100; J1170; J1610; J1940; J2270; J2405; J2765; J3010; J3480; J7120; J7613

== ENCOUNTER 2017-10-10 10:39 | Inpatient (IN) | payer MEDICARE ==
[~2017-10-10] VITALS: Ht 157.5 cm; Wt 88.7 kg
[~2017-10-10 10:39] MED LIST changes: -AMIT10TA6 PO
[2017-10-10] MEDS ORDERED: METOPROLOL TARTRATE 25 MG TAB ONE (11:35)
[2017-10-10] MEDS ORDERED: ALVIMOPAN 12 MG CAPSULE ONE (11:36)
[2017-10-10] MEDS ORDERED: SODIUM CHLORID 0.9% 500 ML IV PRN (11:45)
[2017-10-10] MEDS ORDERED: POVIDONE IODINE 5% (ANTISEPSIS KIT) 4 APPLICATIONS EACH NARE PRN (11:45)
[2017-10-10] MEDS ORDERED: CHLORHEXIDINE GLUCONATE 2 % 1 PACK (2 CLOTHS) TOPICAL PRN (11:45)
[2017-10-10] MEDS ORDERED: METOPROLOL TARTRATE 25 MG TAB PO PRN (11:45)
[2017-10-10] MEDS ORDERED: LACTATED RINGER'S 1000 ML IV PRN (11:45)
[2017-10-10] MEDS ORDERED: ePHEDrine/NS 25 MG/5 ML SYRINGE IV ONE (12:00)
[2017-10-10] MEDS ORDERED: NEOSTIGMINE 5 MG/5 ML SYRINGE IV PUSH ONE (12:00)
[2017-10-10] MEDS ORDERED: METRONIDAZOLE 500 MG/100 ML ISONTONIC SOLN IV SCH (12:00)
[2017-10-10] MEDS ORDERED: ROCURONIUM INJ 50 MG/5 ML SYRINGE IV PUSH ONE (12:00)
[2017-10-10] MEDS ORDERED: ceFAZolin 1,000 MG/NS 100 ML IV SCH ×2 (12:00)
[2017-10-10] MEDS ORDERED: DEXT 5%-NACL 0.9% 1000 ML INJ 1,000 ML IV SCH (12:00)
[2017-10-10] MEDS ORDERED: PROPOFOL 200 MG/20 ML AMP IV ONE (12:00)
[2017-10-10] MEDS ORDERED: ALVIMOPAN 12 MG CAPSULE - On Call PO SCH (12:00)
[2017-10-10] MEDS ORDERED: LIDOCAINE HCL 1% PF 5 ML SYRINGE OTHER ONE (12:00)
[2017-10-10] MEDS ORDERED: ONDANSETRON HCL 4 MG/2 ML VIAL IV ONE (12:00)
[2017-10-10] MEDS ORDERED: GLYCOPYRROLATE 1 MG/5 ML SYRINGE IV PUSH ONE (12:00)
[2017-10-10] MEDS ORDERED: D5-LR + KCL 20 MEQ INJ 1,000 ML IV SCH (14:28)
[2017-10-10] MEDS ORDERED: BENZOCAINE 6 MG/MENTHOL 10 MG LOZENGE BUCCAL PRN (14:30)
[2017-10-10] MEDS ORDERED: MORPHINE SULFATE 30 MG/30 ML PCA IV SCH (14:30)
[2017-10-10] MEDS ORDERED: SODIUM CHLORIDE 0.9% FLUSH 10 ML FLUSH IV FLUSH PRN (14:30)
[2017-10-10] MEDS ORDERED: ENALAPRILAT 1.25 MG/ML VIAL IV PUSH PRN (14:30)
[2017-10-10] MEDS ORDERED: KETOROLAC TROMETHAMINE 30 MG/ML (IVP) VIAL IVP PRN (14:30)
[2017-10-10] MEDS ORDERED: NALOXONE HCL 0.4 MG/ML AMP IV PUSH PRN (14:30)
[2017-10-10] MEDS ORDERED: POTASSIUM CHLOR 20 MEQ PREMIX 100 ML IV PRN (14:30)
[2017-10-10] MEDS ORDERED: ZOLPIDEM TARTRATE 5 MG TAB PO PRN (14:30)
[2017-10-10] MEDS ORDERED: Post-op Orders (for Pharmacy) XX ONE (14:30)
[2017-10-10] MEDS ORDERED: POTASSIUM CHLOR 40 MEQ PREMIX 100 ML IV PRN (14:30)
[2017-10-10] MEDS ORDERED: ACETAMINOPHEN/HYDROcodone 325 MG/5 MG TAB PO PRN (14:30)
[2017-10-10] MEDS ORDERED: MIDAZOLAM HCL 2 MG/2 ML VIAL ONE (14:43)
[2017-10-10] MEDS ORDERED: ALBUTEROL SULFATE 90 MCG/ACT HFA 8 GM INHALER INH PRN (14:45)
[2017-10-10] MEDS ORDERED: *morphine SULFATE 4 MG/ML PERIprocedure ONLY ONE (14:55)
--- NOTE | 2017-10-10 14:58 | MP ---
cc: Roderick Patricia MD DATE OF OPERATION: 10/10/2017 PREOPERATIVE DIAGNOSIS: Ileostomy. POSTOPERATIVE DIAGNOSIS: Ileostomy. PROCEDURE PERFORMED: Small bowel resection and closure of ileostomy. ANESTHESIA: General endotracheal. SURGEON: Roderick Patricia MD HELP DESK INTERN: Justice De La Cruz MD ESTIMATED BLOOD LOSS: Minimal. OPERATIVE FINDINGS: This patient underwent an emergency colectomy about 9 months ago in [place], [place] for perforated diverticulitis. She underwent a colostomy and a Andrew pouch and then came home to [place] and developed an abscess intra-abdominally that was small. She was treated with antibiotics and cleared that and then about 3 months ago underwent closure of her colostomy with a fairly low anterior resection due to adhesions and scarring. For this reason, a diverting loop ileostomy was done and she is presenting today for closure of her loop ileostomy. At surgery, the loop ileostomy was closed by resecting the small bowel proximal and distal to the stoma and then doing a small bowel anastomosis. OPERATIVE TECHNIQUE: The patient was placed on the table in the supine position. After adequate general endotracheal anesthesia, the legs were placed in the perineal lithotomy position and proctoscopy was done, identifying the anastomosis and showing no leaks or stenosis. Next, our attention was turned to the abdomen and the ileostomy mucosa was previously sutured closed with 3-0 Vicryl suture and the abdomen was prepped and draped in the usual manner. A vertical elliptical incision was then made and carried down through the subcutaneous tissue and the small bowel was mobilized from the rectus muscle and fascia. The peritoneal cavity was entered and the bowel was mobilized from a circular layer around the peritoneal cavity until all the adhesions were taken down around the stoma. The proximal and distal small bowel to the stoma was of adequate length and quality and the proximal limb of the stoma was divided with a VIRGIE 55 stapling device and then the mesentery was successively clamped, cut, and ligated. The distal limb of the ileostomy, which was previously defunctionalized was divided between Anselmo clamps and then the anastomosis was made along the antimesenteric borders of the small bowel using Ethicon VIRGIE 55 stapling device. Once this was done, the enterotomy was closed with a TX 60 blue staple height stapler and the small opening in the mesentery was closed with interrupted 3-0 Vicryl sutures. Once this was done and hemostasis was found to be adequate, the bowel was replaced in the abdominal cavity, and then the abdominal cavity incision was closed using a single strand of #1 PDS for the posterior rectus sheath and then a single strand of #1 PDS for the anterior rectus sheath. Subcutaneous tissue was irrigated thoroughly with a liter of saline solution and aspirated dry and the skin was closed with running 3-0 Vicryl subcuticular suture and a dressing was applied. Sponge, needle and instrument counts were reported as correct. The estimated blood loss was minimal. The patient tolerated the procedure well and left the operating room in good condition. MD ASHLEIGH Ferreira/RAVI , 02:38 PM , 02:57 PM
[2017-10-10] MEDS ORDERED: *morphine SULFATE 8 MG/ML PERIprocedure ONLY ONE (15:08)
[2017-10-10 15:14] LABS: AUTOMATED NEUTROPHIL # 7.4 TH/MM3 (1.8-7.7); BASOPHIL # 0.1 TH/MM3 (0-0.2); BASOPHIL % 0.5 % (0.0-2.0); EOSINOPHIL # 0.1 TH/MM3 (0-0.4); EOSINOPHIL % 0.7 % (0.0-4.0); HEMATOCRIT 37.2 % (35.0-46.0); HEMOGLOBIN 12.2 GM/DL (11.6-15.3); LYMPH % 31.4 % (9.0-44.0); LYMPHOCYTE # 3.7 TH/MM3 (1.0-4.8); MEAN CELL VOLUME 93.6 FL (80.0-100.0); MEAN CORPUSCULAR HEMOGLOBIN 30.6 PG (27.0-34.0); MEAN CORPUSCULAR HGB CONC 32.7 % (32.0-36.0); MEAN PLATELET VOLUME 8.4 FL (7.0-11.0); MONOCYTE # 0.5 TH/MM3 (0-0.9); NEUT % 63.4 % (16.0-70.0); PLATELET COUNT 262 TH/MM3 (150-450); RED BLOOD COUNT 3.98 MIL/MM3 (4.00-5.30); RED CELL DISTRIBUTION WIDTH 14.4 % (11.6-17.2); WHITE BLOOD COUNT 11.7 TH/MM3 (4.0-11.0)
[2017-10-10] MEDS ORDERED: ONDANSETRON ODT 4 MG TAB PO PRN (15:15)
[2017-10-10 15:39] LABS: BICARBONATE 24.6 MEQ/L (21.0-32.0); CALCIUM 8.7 MG/DL (8.5-10.1); CREATININE 0.94 MG/DL (0.50-1.00)
[2017-10-10] MEDS ORDERED: *ENALAPRILAT 1.25 MG/ML VIAL PERIprocedural Use ONLY ONE ×2 (15:42→17:36)
[2017-10-10] MEDS ORDERED: DO NOT ADM ANY ANTICOAGULANT DRUGS PRN (15:45)
[2017-10-10] MEDS: DEXTROSE 5%-LACTATED RING INJ 1,000 ML IV SCH (16:15)
[2017-10-10] MEDS: METOCLOPRAMIDE HCL 10 MG/2 ML VIAL IVS SCH ×2 (18:00→23:38)
[2017-10-10] MEDS: RESP: ALBUTEROL 2.5 MG/IPRATROPIUM 0.5 MG NEB (SCH) INH (19:59)
[2017-10-10 20:00] VITALS: BP 150/70; PULSE 49; RESP 18; TEMP 97.1; O2SAT 97
[2017-10-10] MEDS: BUDESONIDE-FORMOTEROL 160/4.5 MCG INHALER INH SCH (21:00)
[2017-10-10] MEDS: FUROSEMIDE 20 MG/2 ML VIAL IV PUSH SCH (21:40)
[2017-10-10] MEDS: CARVEDILOL 3.125 MG TAB PO SCH (21:40)
[2017-10-10] MEDS: MONTELUKAST SODIUM 10 MG TAB PO SCH (21:40)
[2017-10-10] MEDS: LISINOPRIL 20 MG TAB PO SCH (21:41)
[2017-10-10] MEDS: SODIUM CHLORIDE 0.9% FLUSH 10 ML FLUSH IV FLUSH SCH (21:41)
[2017-10-10] MEDS: metroNIDAZOLE 500 MG INJ 100 ML IV SCH (21:42)
[2017-10-11] VITALS (8 sets, daily range): BP systolic 134–155; BP diastolic 63–76; PULSE 46–59; RESP 17–18; TEMP 97.2–98.6; O2SAT 94–97
[2017-10-11] MEDS: DEXTROSE 5%-LACTATED RING INJ 1,000 ML IV SCH ×2 (02:21→11:03)
[2017-10-11] MEDS: PCA - TOTAL MG MORPHINE DELIVERED PER SHIFT SCH ×3 (04:00→13:28)
[2017-10-11] MEDS: METOCLOPRAMIDE HCL 10 MG/2 ML VIAL IVS SCH ×4 (04:22→20:55)
[2017-10-11] MEDS: metroNIDAZOLE 500 MG INJ 100 ML IV SCH ×2 (04:22→12:39)
[2017-10-11 04:57] LABS: AUTOMATED NEUTROPHIL # 14.3 TH/MM3 (1.8-7.7); BASOPHIL % 0.2 % (0.0-2.0); EOSINOPHIL % 0.1 % (0.0-4.0); HEMOGLOBIN 12.5 GM/DL (11.6-15.3); LYMPH % 10.2 % (9.0-44.0); LYMPHOCYTE # 1.7 TH/MM3 (1.0-4.8); MEAN CELL VOLUME 93.8 FL (80.0-100.0); MEAN PLATELET VOLUME 8.8 FL (7.0-11.0); MONOCYTE # 0.8 TH/MM3 (0-0.9); NEUT % 84.5 % (16.0-70.0); PLATELET COUNT 256 TH/MM3 (150-450); RED BLOOD COUNT 4.05 MIL/MM3 (4.00-5.30); RED CELL DISTRIBUTION WIDTH 14.4 % (11.6-17.2); WHITE BLOOD COUNT 16.9 TH/MM3 (4.0-11.0)
[2017-10-11 05:30] LABS: BICARBONATE 24.7 MEQ/L (21.0-32.0); CALCIUM 8.8 MG/DL (8.5-10.1); CREATININE 1.01 MG/DL (0.50-1.00)
[2017-10-11] MEDS: RESP: ALBUTEROL 2.5 MG/IPRATROPIUM 0.5 MG NEB (SCH) INH ×3 (08:59→20:08)
[2017-10-11] MEDS ORDERED: PATIENT OWN MEDICATION (Umeclidinium Bromide Inh (Incruse Ellipta Inh) 62.5 MCG) INH SCH (09:00)
[2017-10-11] MEDS: FUROSEMIDE 20 MG/2 ML VIAL IV PUSH SCH ×2 (09:00→20:54)
[2017-10-11] MEDS: PANTOPRAZOLE SODIUM 40 MG VIAL IVP SCH (09:01)
[2017-10-11] MEDS: SODIUM CHLORIDE 0.9% FLUSH 10 ML FLUSH IV FLUSH SCH ×2 (09:01→20:54)
[2017-10-11] MEDS: ALVIMOPAN 12 MG CAPSULE - Post-op dosing PO SCH ×2 (09:03→20:52)
[2017-10-11] MEDS: CARVEDILOL 3.125 MG TAB PO SCH ×2 (09:03→20:51)
[2017-10-11] MEDS: BUDESONIDE-FORMOTEROL 160/4.5 MCG INHALER INH SCH ×2 (11:01→20:54)
[2017-10-11] MEDS: HEPARIN SODIUM - SQ 10,000 UNITS/ML VIAL SQ SCH ×2 (12:45→20:55)
[2017-10-11] MEDS: ACETAMINOPHEN/HYDROcodone 325 MG/5 MG TAB PO PRN ×2 (15:20→20:53)
--- NOTE | 2017-10-11 15:34 | HHI.PR ---
Subjective Remarks Some pain. IVs infiltrated. Oral pain meds ordered. Objective Vital Signs Date Time Temp Pulse Resp B/P (MAP) Pulse Ox O2 Delivery O2 Flow Rate FiO2 10/11/17 13:28 18 10/11/17 13:24 18 10/11/17 12:00 97.8 52 17 155/68 (97) 96 10/11/17 09:04 96 21 10/11/17 08:00 97.2 50 17 134/65 (88) 95 10/11/17 06:00 18 10/11/17 04:00 97.7 46 18 139/65 (89) 95 10/11/17 04:00 18 10/11/17 00:00 97.3 59 18 150/70 (96) 94 10/10/17 20:00 50 22 142/61 (88) 100 Nasal Cannula 2 10/10/17 20:00 97.1 49 18 150/70 (96) 97 10/10/17 19:00 97.6 56 24 138/64 (88) 100 Nasal Cannula 2 10/10/17 18:30 45 16 149/67 (94) 100 Nasal Cannula 2 10/10/17 18:00 45 21 153/67 (95) 100 Nasal Cannula 2 10/10/17 17:30 45 21 170/73 (105) 100 Nasal Cannula 2 10/10/17 17:00 50 23 158/69 (98) 100 Nasal Cannula 2 10/10/17 16:30 46 22 157/64 (95) 100 Nasal Cannula 2 10/10/17 16:15 40 23 163/72 (102) 100 Nasal Cannula 2 10/10/17 16:00 97.1 40 24 174/75 (108) 100 Nasal Cannula 2 10/10/17 15:45 41 24 171/76 (107) 100 Nasal Cannula 2 I/O 10/10/17 10/10/17 10/10/17 10/11/17 10/11/17 10/11/17 07:00 15:00 23:00 07:00 15:00 23:00 Intake Total 1300 ml 262 ml 1640 ml Output Total 5 ml 400 ml 250 ml Balance 1295 ml -138 ml 1390 ml Intake Oral 240 ml IV Total 262 ml 1400 ml Other 1300 ml Output Urine Total 400 ml 250 ml Estimated Blood Loss 5 ml # Voids 6 Result Diagram: 10/11/17 0340 10/11/17 034 Objective Remarks VS-S Abd: soft,dressing dry. Assessment and Plan Assessment and Plan Stable POD#1 Plan: slowly advance diet. D/C IV. Roderick Patricia MD Oct 11, 2017 15:34
[2017-10-11] MEDS: LISINOPRIL 20 MG TAB PO SCH (20:51)
[2017-10-11] MEDS: MONTELUKAST SODIUM 10 MG TAB PO SCH (20:52)
[2017-10-11] MEDS ORDERED: ALVIMOPAN 12 MG CAPSULE PO SCH (21:00)
[2017-10-12 00:08] VITALS: BP 149/68; PULSE 60; RESP 16; TEMP 98.1; O2SAT 95
[2017-10-12] MEDS: ACETAMINOPHEN/HYDROcodone 325 MG/5 MG TAB PO PRN ×2 (03:01→08:58)
[2017-10-12] MEDS: METOCLOPRAMIDE HCL 10 MG/2 ML VIAL IVS SCH (04:50)
[2017-10-12] MEDS: HEPARIN SODIUM - SQ 10,000 UNITS/ML VIAL SQ SCH (04:50)
[2017-10-12 07:31] LABS: AUTOMATED NEUTROPHIL # 8.1 TH/MM3 (1.8-7.7); BASOPHIL % 0.3 % (0.0-2.0); EOSINOPHIL # 0.3 TH/MM3 (0-0.4); EOSINOPHIL % 2.5 % (0.0-4.0); HEMATOCRIT 36.2 % (35.0-46.0); HEMOGLOBIN 12.1 GM/DL (11.6-15.3); LYMPH % 20.6 % (9.0-44.0); LYMPHOCYTE # 2.4 TH/MM3 (1.0-4.8); MEAN CELL VOLUME 93.6 FL (80.0-100.0); MEAN CORPUSCULAR HEMOGLOBIN 31.2 PG (27.0-34.0); MEAN CORPUSCULAR HGB CONC 33.3 % (32.0-36.0); MEAN PLATELET VOLUME 8.8 FL (7.0-11.0); MONO % 6.1 % (0.0-8.0); MONOCYTE # 0.7 TH/MM3 (0-0.9); NEUT % 70.5 % (16.0-70.0); PLATELET COUNT 258 TH/MM3 (150-450); RED BLOOD COUNT 3.87 MIL/MM3 (4.00-5.30); RED CELL DISTRIBUTION WIDTH 14.6 % (11.6-17.2); WHITE BLOOD COUNT 11.5 TH/MM3 (4.0-11.0)
[2017-10-12] MEDS: SODIUM CHLORIDE 0.9% FLUSH 10 ML FLUSH IV FLUSH SCH (07:42)
[2017-10-12] MEDS: FUROSEMIDE 20 MG/2 ML VIAL IV PUSH SCH (07:42)
[2017-10-12] MEDS: PANTOPRAZOLE SODIUM 40 MG VIAL IVP SCH (07:42)
[2017-10-12 07:54] LABS: BICARBONATE 29.3 MEQ/L (21.0-32.0); CALCIUM 8.8 MG/DL (8.5-10.1); CREATININE 0.74 MG/DL (0.50-1.00)
[2017-10-12 08:00] VITALS: BP 156/70; PULSE 53; RESP 18; TEMP 97.9; O2SAT 95
[2017-10-12] MEDS: RESP: ALBUTEROL 2.5 MG/IPRATROPIUM 0.5 MG NEB (SCH) INH (08:10)
[2017-10-12 08:11] VITALS: O2SAT 96
--- NOTE | 2017-10-12 08:53 | HHI.DCPOC ---
Discharge Care Plan Diagnosis: (1) S/P closure of ileostomy Your Health Problems Are: Incision/Drains Appetite Changes Irregular Bowel Function Exercise Tolerance Goals to Promote Your Health * To prevent worsening of your condition and complications * To maintain your health at the optimal level Directions to Meet Your Goals Take your medications as prescribed Follow your dietary instruction Follow activity as directed Keep your appointments as scheduled Take your immunizations and boosters as scheduled If your symptoms worsen call your PCP, if no PCP go to Urgent Care Center or Emergency Room Smoking is Dangerous to Your Health. Avoid second hand smoke Call the 24-hour hour crisis hotline for domestic abuse at Roderick Patricia MD Oct 12, 2017 08:53
[2017-10-12] MEDS: BUDESONIDE-FORMOTEROL 160/4.5 MCG INHALER INH SCH (08:56)
[2017-10-12] MEDS: CARVEDILOL 3.125 MG TAB PO SCH (08:57)
[2017-10-12] MEDS: ALVIMOPAN 12 MG CAPSULE - Post-op dosing PO SCH (08:57)
== END 2017-10-12 10:34 | disposition home or self-care (01) | DRG 331 ==
LOC: HSDI 10:39 → N07B 20:19
PROVIDERS: ADMIT Colon & Rectal Surgery; ATTEND Colon & Rectal Surgery
PROC: 0DBB0ZZ Excision of Ileum, Open Approach (ICD-10-PCS; principal; 2017-10-10 13:08)
DX: Z43.2 Encounter for attention to ileostomy (principal); J44.9 Chronic obstructive pulmonary disease, unspecified; I10 Essential (primary) hypertension; E66.9 Obesity, unspecified; Z68.35 Body mass index [BMI] 35.0-35.9, adult; Z85.42 Personal history of malignant neoplasm of other parts of uterus; Z87.891 Personal history of nicotine dependence
CPT/HCPCS: 80048; 85025; 86850; 86900; 86901; 88304; 88307; 94150; 94640; 94664; C9113; J0690; J1644; J1940; J2250; J2270; J2405; J2710; J2765; J3010; J3480; J7121